=== PATIENT | male | born 1975 | race Caucasian/White ===

== ENCOUNTER 2023-11-29 08:05 | Outpatient (CLI) | payer BC, SELFPAY | END 2023-11-29 08:06 | disposition home or self-care (01) | LOC: NFLDREF 12-01 10:32 | PROVIDERS: PCP Physician Assistant Medical; Visit Provider Physician Assistant Medical | DX: Z00.00 Encounter for general adult medical examination without abnormal findings (principal); R53.83 Other fatigue; R68.82 Decreased libido | CPT/HCPCS: 80053; 80061; 82306; 82607; 82728; 84403; 84443 ==

== ENCOUNTER 2023-12-11 09:55 | Outpatient (CLI) | payer BC, SELFPAY ==
--- NOTE | 2023-12-11 11:43 | W.ANESCHARGE ---
Anesthesia Charges Start Date/Time Anesthesia Start Date: 12/11/23 Anesthesia Start Time: 11:16 Stop Date/Time Anesthesia Stop Date: 12/11/23 Anesthesia Stop Time: 11:41
--- NOTE | 2023-12-11 12:25 | W.ANESCHARGE ---
Anesthesia Charges Start Date/Time Anesthesia Start Date: 12/11/23 Anesthesia Start Time: 11:16 Stop Date/Time Anesthesia Stop Date: 12/11/23 Anesthesia Stop Time: 11:41
== END 2023-12-11 09:56 | disposition home or self-care (01) ==
LOC: OP CLINIC 09:56
PROVIDERS: PCP Physician Assistant Medical; Visit Provider Internal Medicine
DX: Z12.11 Encounter for screening for malignant neoplasm of colon (principal)
CPT/HCPCS: 00812; 45378; J2704